=== PATIENT | female | born 1995 | race Caucasian/White ===

== ENCOUNTER 2018-06-15 15:01 | Emergency (ER) | payer MEDICAID ==
[~2018-06-15] VITALS: Ht 170.2 cm; Wt 70.0 kg
[~2018-06-15 15:01] MED LIST: MECL-111 PO; ONDA4TAB12 PO
[2018-06-15 15:10] VITALS: BP 118/62
[2018-06-15] MEDS ORDERED: MICO45CR11 VG (15:26)
== END 2018-06-15 16:48 | disposition home or self-care (01) ==
LOC: ER 15:02
DX: O26.892 Other specified pregnancy related conditions, second trimester (principal); H92.02 Otalgia, left ear; N89.8 Other specified noninflammatory disorders of vagina; F12.90 Cannabis use, unspecified, uncomplicated; Z79.899 Other long term (current) drug therapy; Z3A.17 17 weeks gestation of pregnancy
CPT/HCPCS: 99282; 99283